=== PATIENT | female | born 1960 ===

== ENCOUNTER → 2024-04-24 | Outpatient (CLI) | payer BC, MEDICARE | END | disposition home or self-care (01) | LOC: MRI02 12:00 | PROVIDERS: ATTEND Podiatrist Foot & Ankle Surgery | DX: S92.211A Displaced fracture of cuboid bone of right foot, initial encounter for closed fracture (principal); S96.812A Strain of other specified muscles and tendons at ankle and foot level, left foot, initial encounter; M79.671 Pain in right foot; M79.672 Pain in left foot; M19.071 Primary osteoarthritis, right ankle and foot; M25.872 Other specified joint disorders, left ankle and foot; G57.51 Tarsal tunnel syndrome, right lower limb; M20.21 Hallux rigidus, right foot; M25.871 Other specified joint disorders, right ankle and foot; X58.XXXA Exposure to other specified factors, initial encounter; Y93.89 Activity, other specified; Y92.89 Other specified places as the place of occurrence of the external cause; Y99.8 Other external cause status; R60.9 Edema, unspecified | CPT/HCPCS: 73721 ==